=== PATIENT | female | born 1955 | race Caucasian/White ===

== ENCOUNTER 2025-01-24 07:40 | Outpatient (CLI) | payer MEDICARE, OTHER, SELFPAY ==
--- OUTSIDE RECORDS SUMMARY | 2025-01-24 07:43 | XMS_ITS | Clinical Summary ---
Author Organization [facility] Address [address] [place] [id number] Care Team Providers Care Email Engineer Name Role Phone Unavailable Primary Care Provider Unavailabl e Social History Tobacco Use Types Packs/Day Years Used Date Smoking Tobacco: Never Assessed Comments Unknown Sex and Gender Information Value Date Recorded Sex Assigned at Not on file Legal Sex Female 5:11 PM CDT Gender Identity Not on file Sexual Orientation Not on file Plan of Treatment Health Maintenance Due Date Last Done Comments Colorectal Cancer Screening Colonoscopy (10 Years) 1953 Hepatitis C 09/16/1971 DTaP, Tdap and Td Vaccines ( 1 - Tdap) 1972 Mammogram Screening 1993 Pneumococcal Vaccine: 50+ Ye ars (1 of 1 - PCV) 09/16/2003 Zoster Vaccines (1 of 2) 09/16/2003 Dexa Scan (General) 2018 COVID-19 Vaccine ( - 2023-2 5 season) 2024 RSV Immunization or 60+ Years (1 - 1-dose 75+ series) 2028 Meningococcal B Vaccine Aged Out No l onger eligible based on patient's age to complete this topic Meningococcal Vaccine Aged Out No karl archie eligible based on patient's age to complete this topic RSV Immunizations Under 20 Months Aged Out No longer eligible based on patient's age to complete this topic
[2025-02-15 10:34] VITALS: BMI 41.1
--- NOTE | 2025-02-15 10:34 | P.SLEEP_ITS ---
Sleep Study - Home Unattended Date of Study: 01/24/25 Ordering Provider: Ariela Wing PA-C Interpreting Provider: Loraine Santos, DO Home Sleep Study Type: Watch PAT Height: 1.57 m Weight: 102.058 kg Body Mass Index: 41.1 Neck Circumference (inches): 18.5 [place]: 5 Reason for Sleep Study snoring Sleep History The patient is a 69-year-old female that had a sleep study ordered by her primary care for evaluation of sleep apnea. The patient denies awakening from sleep short of breath. She denies awakening at night with heartburn, belching or cough. She constantly snores loudly enough that others complain. She denies having trouble sleeping when she has a cold. She denies waking up gasping for air throughout the night. She occasionally has breathing problems at night observed by herself or others. She denies sweating excessively at night. She denies having heart palpitations or irregular heartbeats during the night. She occasionally falls asleep during the day but never while driving. She denies sleep paralysis, cataplexy and hypnagogic/ hypnopompic hallucinations. She denies feeling afraid of going to sleep. She denies having nightmares. She rarely remembers her dreams. She denies having thoughts racing through her mind. She denies feeling sad or depressed. She denies having anxiety. She denies having muscular tension. She denies noticing parts of her body jerk. He denies kicking during the night. She denies having crawling and aching feelings in her legs and denies having leg pain during the night. She denies grinding her teeth during sleep and denies awakening with morning jaw pain. She denies being bothered by pain during the day and denies being awakened by pain during the night. She denies waking up feeling stiff in the morning. She denies waking up with sore or achy muscles. She denies waking up with pain in the neck, spine and other joints. She goes to bed at 9:00 p.m. every night. It takes her 15-20 minutes to fall asleep. She rarely wakes up throughout the night. She wakes up at 8:00 a.m. every morning. She typically gets 8-10 hours of sleep per night. She will stay in bed for 5 minutes after waking up in the morning. She currently lives with her daughter. She denies consuming any caffeinated beverages within 2 hours of bedtime. She denies reading before falling asleep. She will watch television before falling asleep. She will take naps in the afternoon or the evening and they are refreshing. She consumes 1 cup of caffeinated beverage per day. She denies tobacco, alcohol and recreational drug use. [facility] Past Medical History Medical History Depression Social History Social History Smoking status: Unknown if ever smoked Medications Home Medications ?Medication ?Instructions ?Recorded ?Confirmed ?Type aripiprazole 2 mg tablet 2 mg PO QHS 03/15/22 01/06/25 History bupropion HCl 300 mg 24 hr tablet, 300 mg PO QAM 03/15/22 01/06/25 History extended release sertraline 50 mg tablet 50 mg PO DAILY 03/15/22 01/06/25 History Sleep Procedure The sleep study was completed using [employer] a technically adequate device with seven channels: peripheral arterial tone, actigraphy, body position, snore, respiratory movement, pulse oximetry, sleep staging, and heart rate. Prior to using the device, the patient received verbal and written instructions for its application and was provided with the help desk phone number for additional telephonic instruction with 24-hour availability of qualified personnel to answer questions. The study was scored using CMS guidelines. Sleep Architecture The total recording time is 9 hrs, 11 min. The total sleep time is 8 hrs, 31 min. Sleep latency is 5 minutes. REM latency is 81 minutes. The patient had 8 episodes of waking. Sleep architecture shows 17.5% deep sleep, 49.0% light sleep, and (as % Total Sleep Time) showed NREM (Light 49.0%; Deep 17.5%), and a 33.5% stage REM. The patient spent 73.2% of total sleep time in the supine position. Sleep efficiency was 92.74. Respiratory Analysis The overall AHI (pAHI 4%:) is 15.3. The overall AHI (pAHI 3%:) is 25.9. The central AHI is 1.0. The AHI was 14.8 in NREM and 47.4 in REM sleep. The AHI was 27.8 in Supine and 20.7 in Non-supine sleep. Percent of Jewel Chao respirations is 0.0. Oximetry Data The oxygen desaturation index (DEBORA 4%:) is 15.0. The mean saturation is 90%, and the lowest saturation is 85%. Time spent with saturation < 88% is 24.3 minutes. Snoring Profile Snoring average intensity is 52 dB. The patient snored above 45 decibels for 296.4 minutes, 57.9% of sleep time. Cardiac Profile The average pulse rate is 69 beats per minutes. The lowest pulse rate is 54 bpm. The highest pulse rate reported is 98 bpm. Suspected Afib total duration is 0:00:44, (h:m:sec). The longest Afibevent duration is 0:00:44. A suspected arrhythmia flagged in the sleep report does not necessarily imply an arrhythmia condition is present, but rather suggests that further investigation should be considered. A-Fib events < 60 seconds may be artifact. Premature beats occur 8.8 per minute. Assessment and Plan Assessment and Plan (1) GARCIA (obstructive sleep apnea): Code(s): G47.33 - Obstructive sleep apnea (adult) (pediatric) Status: Acute Assessment and Plan: The patient had an overall AHI of 15.3 with desaturation down to 85%. This is consistent with moderate sleep apnea. The patient spent 24.3 minutes with an oxygen saturation below 88%. I recommend that the patient have a CPAP titration study with the use of a hypnotic to ensure we obtain enough sleep data and find an optimal pressure setting. A mandibular advancement device is also an acceptable treatment option. Data The data obtained during this sleep study is adequate for interpretation. Certification This sleep study has been reviewed by a board certified sleep medicine physician.
== END 2025-01-25 13:51 | disposition home or self-care (01) ==
PROVIDERS: PCP Physician Assistant Medical; Visit Provider Physician Assistant Medical
DX: G47.33 Obstructive sleep apnea (adult) (pediatric) (principal); R06.83 Snoring; R41.3 Other amnesia
CPT/HCPCS: 95800